=== PATIENT | female | born 1985 | race African-American/Black ===

== ENCOUNTER 2019-07-11 20:26 | Emergency (ER) | payer MEDICAID ==
[~2019-07-11] VITALS: Ht 175.3 cm; Wt 118.0 kg
[2019-07-11 21:56] LABS: CLARITY URINE CLEAR (CLEAR); COLOR URINE YELLOW (YELLOW); KETONES URINE NEGATIVE (NEGATIVE); LEUKOCYTE ESTERASE URINE NEGATIVE (NEGATIVE); NITRITE URINE NEGATIVE (NEGATIVE); OCCULT BLOOD URINE NEGATIVE (NEGATIVE); PH URINE 5.5 (4.5-8.0); PROTEIN URINE NEGATIVE (NEGATIVE); SPECIFIC GRAVITY URINE 1.013 (1.005-1.030); UROBILINOGEN URINE 0.2 E.U./dL (0.2-1.0)
[2019-07-11] MEDS ORDERED: AZITHROMYCIN 500 MG TABLET PO SCH (22:45)
[2019-07-11] MEDS ORDERED: CEFTRIAXONE SODIUM 250 MG/VIAL IM SCH (22:45)
[2019-07-11] MEDS ORDERED: METRONIDAZOLE 500MG TABLET PO SCH (22:45)
[2019-07-12 00:30] VITALS: BP 139/82
== END 2019-07-12 00:54 | disposition home or self-care (01) ==
LOC: ER 20:26
DX: H60.92 Unspecified otitis externa, left ear (principal); N89.8 Other specified noninflammatory disorders of vagina; Z11.3 Encounter for screening for infections with a predominantly sexual mode of transmission; I10 Essential (primary) hypertension; F17.200 Nicotine dependence, unspecified, uncomplicated; Z98.890 Other specified postprocedural states
CPT/HCPCS: 81003; 81025; 87591; 96372; 99283; J0696

== ENCOUNTER 2019-11-10 22:33 | Emergency (ER) | payer SELFPAY ==
[~2019-11-10] VITALS: Ht 175.3 cm; Wt 100.0 kg
[2019-11-11] MEDS ORDERED: FLUCONAZOLE 150MG TABLET PO NR
[2019-11-11] MEDS ORDERED: FLUCONAZOLE 100MG TABLET PO ONE
[2019-11-11] MEDS ORDERED: KETOROLAC 60MG/2ML VIAL IM ONE (00:15)
[2019-11-11 01:40] VITALS: BP 137/68
== END 2019-11-11 01:40 | disposition home or self-care (01) ==
LOC: ER 22:33
DX: N39.0 Urinary tract infection, site not specified (principal); B37.9 Candidiasis, unspecified; F12.10 Cannabis abuse, uncomplicated; Z98.890 Other specified postprocedural states
CPT/HCPCS: 96372; 99283; J1885